=== PATIENT | male | born 1965 | race Native Hawaiian/Other Pacific Islander ===

== ENCOUNTER 2021-11-23 20:27 | Emergency (ER) | payer SELFPAY ==
[2021-11-23 21:10] LABS: BASOPHILS % (AUTO) 0.4 %; EOSINOPHILS % (AUTO) 0.5 %; HCT - HEMATOCRIT 48.5 % (42.0-52.0); HGB - HEMOGLOBIN 16.2 g/dL (14.0-18.0); LYMPHOCYTES % (AUTO) 11.8 %; MEAN CORPUSCULAR HEMOGLOBIN 30.3 pg (27.0-31.0); MEAN CORPUSCULAR HGB CONC 33.4 g/dL (32.0-36.0); MEAN CORPUSCULAR VOLUME 90.8 fL (80.0-94.0); MEAN PLATELET VOLUME 9.5 fL (7.4-11.4); MONOCYTES % (AUTO) 5.9 %; NEUTROPHILS % (AUTO) 80.4 %; PLT - PLATELET COUNT 222 10^3/uL (130-450); RED BLOOD COUNT 5.34 10^6/uL (4.70-6.10); RED CELL DISTRIBUTION WIDTH 12.6 % (12.0-15.0); WHITE BLOOD COUNT 20.2 x10^3/uL (4.8-10.8)
[2021-11-23 21:14] LABS: ABNORMAL LYMPHS % (MANUAL) 0 %
[2021-11-23] MEDS ORDERED: SODIUM CHLORIDE 0.9% 1,000 ML IV STA (21:25)
[2021-11-23 21:29] LABS: ALBUMIN 4.5 g/dL (3.2-5.5); ALBUMIN/GLOBULIN RATIO 1.2 (1.0-2.2); BILIRUBIN,TOTAL 0.4 mg/dL (0.2-1.0); CALCIUM 9.4 mg/dL (8.5-10.3); CREATININE 1.1 mg/dL (0.6-1.2); POTASSIUM 3.2 mmol/L (3.5-5.0); TOTAL PROTEIN 8.2 g/dL (6.7-8.2)
[2021-11-23 21:33] LABS: BILIRUBIN,URINE NEGATIVE (NEGATIVE); GLUCOSE, URINE (UA) NEGATIVE (NEGATIVE); KETONES,URINE (UA) NEGATIVE (NEGATIVE); LEUKOCYTE ESTERASE, URINE NEGATIVE (NEGATIVE); NITRITE,URINE NEGATIVE (NEGATIVE); OCCULT BLOOD,URINE NEGATIVE (NEGATIVE); PROTEIN,URINE TRACE mg/dL (NEGATIVE); UROBILINOGEN,URINE 0.2 (NORMAL) E.U./dL (NORMAL)
[2021-11-23] MEDS ORDERED: VANCOMYCIN INJ 1.75 GM in SODIUM CHLORIDE 0.9% 500 ML IV STA (21:34)
[2021-11-23] MEDS ORDERED: CEFEPIME 2 GM in SODIUM CHLORIDE 0.9% MINIBAG 100 ML IV STA (21:34)
[2021-11-23] MEDS ORDERED: metroNIDAZOLE 500 MG/100 ML 500 MG/100 ML BAG IV STA (21:34)
[2021-11-23 21:38] LABS: CLARITY,URINE CLEAR (CLEAR)
[2021-11-23 21:47] LABS: BAND NEUTROPHILS % (MANUAL) 4 %; DIFFERENTIAL COMMENT MANUAL DIFFERENTIAL; LYMPHOCYTES # (MANUAL) 3.4 10^3/uL (1.5-3.5); LYMPHOCYTES % (MANUAL) 17 %; MONOCYTES # (MANUAL) 0.4 10^3/uL (0.0-1.0); NEUTROPHILS # (MANUAL) 16.4 10^3/uL (1.5-6.6); PLATELET ESTIMATE, MANUAL NORMAL (130-450,000) (NORMAL); PLATELET MORPHOLOGY NORMAL APPEARANCE (NORMAL); RBC MORPHOLOGY (MULTIPLE) NORMAL APPEARANCE (NORMAL); WBC MORPHOLOGY (MULTIPLE) NORMAL APPEARANCE (NORMAL)
[2021-11-23 21:58] LABS: LACTIC ACID, VENOUS 2.8 mmol/L (0.5-2.2)
[2021-11-23] MEDS ORDERED: VANCOMYCIN 1 GM VIAL ONE (22:07)
--- NOTE | 2021-11-23 22:13 | XRAY Report ---
PROCEDURE: Chest 1 View X-Ray INDICATIONS: chest pain TECHNIQUE: One view of the chest was acquired. COMPARISON: None. FINDINGS: Surgical changes and devices: None. Lungs and pleura: No pleural effusions or pneumothorax. Lungs are clear. Mediastinum: Mediastinal contours appear normal. Heart size is at the upper limits of normal. Bones and chest wall: No suspicious bony lesions. Overlying soft tissues appear unremarkable. IMPRESSION: Heart size is at the upper limits of normal, no pneumonia found. No definite acute CHF. Reviewed by: Abdoulaye Marx MD on 11/23/2021 10:11 PM PDT Approved by: Abdoulaye Marx MD on 11/23/2021 10:11 PM PDT Station ID: [id number]
[2021-11-23] MEDS ORDERED: IOVERSOL 320 100 ML VIAL IVP ONE ×2 (22:24→23:26)
--- NOTE | 2021-11-23 22:36 | ED Physician Documentation ---
History of Present Illness - Stated complaint Stated Complaint: DIZZY,VOMIT - Chief complaint Chief Complaint: Abd Pain - History obtained from History obtained from: Patient, Family (tagolic speaking family to help with history) - History of Present Illness Timing: Prior to arrival, Today - Additonal information Additional information: 56-year-old male was reportedly in his usual state of health when he consumed some pork this evening and shortly after he began to develop some nausea and vomiting. He denies any specific pain but he is unable to stand up and walk. He has not had this happen to him previously. He complains of dizziness. He vomited 3 times. He has not had diarrhea. He has not had fever. Review of Systems Constitutional: denies: Fever, Chills Eyes: denies: Decreased vision Ears: denies: Ear pain Nose: denies: Congestion Throat: denies: Sore throat Cardiac: denies: Chest pain / pressure, Palpitations, Pedal edema, Calf pain Respiratory: denies: Dyspnea, Cough, Wheezing GI: reports: Nausea, Vomiting. denies: Abdominal Pain, Constipation, Diarrhea : denies: Dysuria, Frequency Skin: denies: Rash Musculoskeletal: reports: Neck pain. denies: Back pain, Extremity pain Neurologic: reports: Generalized weakness, Altered mental status, Headache. denies: Focal weakness, Numbness, Head injury, LOC PD PAST MEDICAL HISTORY - Present Medications Home Medications: Ambulatory Orders Medication Instructions Recorded Confirmed No Known Home Medications 11/23/21 11/23/21 - Allergies Allergies/Adverse Reactions: Allergies Allergy/AdvReac Type Severity Reaction Status Date / Time No Known Drug Allergies Allergy Verified 11/23/21 20:39 PD ED PE NORMAL - Vitals Vital signs reviewed: Yes (hypertensive marked) - General General: Well developed/nourished, Other (56-year-old male who is withdrawn lays with his eyes closed and responds to his children asking him questions and answers appropriately but does not open his eyes.) - HEENT HEENT: Atraumatic, PERRL, EOMI - Neck Neck: Supple, no meningeal sign, No bony TTP, Other (Able to fully flex and extend the neck.) - Cardiac Cardiac: RRR, No murmur - Respiratory Respiratory: No respiratory distress, Clear bilaterally - Abdomen Abdomen: Normal bowel sounds, Soft, Non tender, Non distended, No organomegaly - Back Back: No CVA TTP, No spinal TTP - Derm Derm: Warm and dry, No rash, Other (Skin appears mottled) - Extremities Extremities: No deformity, No edema - Neuro Neuro: area director 2-12 intact, No motor deficit, No sensory deficit, Normal speech Eye Opening: To Voice Motor: Obeys Commands Verbal: Oriented GCS Score: 14 - Psych Psych: Other (Mood is withdrawn and the affect is flat.) Results - Vitals Vitals: Vital Signs - 24 hr 11/23/21 11/23/21 11/23/21 20:30 20:48 21:06 Temperature 36.2 C L Heart Rate 62 56 L 65 Respiratory 18 16 18 Rate Blood Pressure 222/110 H 198/107 H 209/119 H O2 Saturation 98 100 100 11/23/21 11/23/21 11/23/21 21:41 22:04 22:45 Temperature Heart Rate 60 79 63 Respiratory 18 18 16 Rate Blood Pressure 192/113 H 191/110 H 192/113 H O2 Saturation 100 100 100 11/23/21 11/24/21 11/24/21 23:30 00:00 01:00 Temperature Heart Rate 61 64 66 Respiratory 16 18 20 Rate Blood Pressure 179/114 H 174/121 H 162/134 H O2 Saturation 100 100 100 11/24/21 11/24/21 11/24/21 01:50 01:52 01:58 Temperature Heart Rate 62 61 61 Respiratory 20 20 18 Rate Blood Pressure 172/109 H 166/110 H 174/113 H O2 Saturation 100 100 100 11/24/21 11/24/21 11/24/21 02:03 02:06 02:11 Temperature Heart Rate 61 61 62 Respiratory 18 20 18 Rate Blood Pressure 173/115 H 176/111 H 169/114 H O2 Saturation 100 100 100 11/24/21 11/24/21 11/24/21 02:16 02:25 02:28 Temperature Heart Rate 60 60 63 Respiratory 16 16 18 Rate Blood Pressure 162/111 H 159/111 H 154/114 H O2 Saturation 98 98 98 11/24/21 11/24/21 11/24/21 02:31 02:38 02:43 Temperature Heart Rate 63 64 60 Respiratory 16 19 18 Rate Blood Pressure 159/107 H 161/102 H 155/107 H O2 Saturation 97 99 97 11/24/21 11/24/21 11/24/21 02:56 03:03 03:09 Temperature Heart Rate 72 72 63 Respiratory 19 18 18 Rate Blood Pressure 155/105 H 146/101 H 147/97 H O2 Saturation 99 98 100 11/24/21 11/24/21 03:14 03:32 Temperature Heart Rate 65 62 Respiratory 18 16 Rate Blood Pressure 149/96 H 143/95 H O2 Saturation 100 99 Oxygen O2 Source Room air - Labs Labs: Laboratory Tests 11/23/21 11/23/21 11/23/21 21:00 21:00 21:20 WBC 20.2 H RBC 5.34 Hgb 16.2 Hct 48.5 MCV 90.8 MCH 30.3 MCHC 33.4 RDW 12.6 Plt Count 222 MPV 9.5 Neut # (Auto) Not Reportable Lymph # (Auto) Not Reportable Coke # (Auto) Not Reportable Eos # (Auto) Not Reportable Baso # (Auto) Not Reportable Absolute Nucleated RBC Not Reportable Total Counted 100 Band Neuts % (Manual) 4 Abnorm Lymph % (Manual) 0 Nucleated RBC % Not Reportable Neutrophils # (Manual) 16.4 H Lymphocytes # (Manual) 3.4 Monocytes # (Manual) 0.4 Eosinophils # (Manual) 0.0 Basophils # (Manual) 0.0 Differential Comment MANUAL DIFFERENTIAL WBC Morphology NORMAL APPEARANCE Platelet Estimate NORMAL (130-450,000) Platelet Morphology NORMAL APPEARANCE RBC Morph Micro Appear NORMAL APPEARANCE Sodium 142 Potassium 3.2 L Chloride 103 Carbon Dioxide 26 Anion Gap 13.0 BUN 17 Creatinine 1.1 Estimated GFR (MDRD) 69 L Glucose 149 H Lactic Acid Calcium 9.4 Total Bilirubin 0.4 AST 30 ALT 31 Alkaline Phosphatase 68 Total Protein 8.2 Albumin 4.5 Globulin 3.7 Albumin/Globulin Ratio 1.2 Lipase 28 Urine Color YELLOW Urine Clarity CLEAR Urine pH 6.0 Ur Specific [place] 1.025 Urine Protein TRACE Urine Glucose (UA) NEGATIVE Urine Ketones NEGATIVE Urine Occult Blood NEGATIVE Urine Nitrite NEGATIVE Urine Bilirubin NEGATIVE Urine Urobilinogen 0.2 (NORMAL) Ur Leukocyte Esterase NEGATIVE Ur Microscopic Review NOT INDICATED Urine Culture Comments NOT INDICATED Nasal Adenovirus (PCR) Nasal B. parapertussis DNA (PCR) Nasal Coronavir 229E PCR Nasal Coronavir HKU1 PCR Nasal Coronavir NL63 PCR Nasal Coronavir OC43 PCR Nasal Enterovir/Rhinovir PCR Nasal Influenza B PCR Nasal Influenza A PCR Nasal Parainfluen 1 PCR Nasal Parainfluen 2 PCR Nasal Parainfluen 3 PCR Nasal Parainfluen 4 PCR Nasal RSV (PCR) Nasal B.pertussis DNA PCR Nasal C.pneumoniae (PCR) Dread Human Metapneumo PCR Nasal M.pneumoniae (PCR) Nasal SARS-CoV-2 (PCR) 11/23/21 11/23/21 11/24/21 21:35 21:39 00:50 WBC RBC Hgb Hct MCV MCH MCHC RDW Plt Count MPV Neut # (Auto) Lymph # (Auto) Coke # (Auto) Eos # (Auto) Baso # (Auto) Absolute Nucleated RBC Total Counted Band Neuts % (Manual) Abnorm Lymph % (Manual) Nucleated RBC % Neutrophils # (Manual) Lymphocytes # (Manual) Monocytes # (Manual) Eosinophils # (Manual) Basophils # (Manual) Differential Comment WBC Morphology Platelet Estimate Platelet Morphology RBC Morph Micro Appear Sodium Potassium Chloride Carbon Dioxide Anion Gap BUN Creatinine Estimated GFR (MDRD) Glucose Lactic Acid 2.8 H 3.2 H* Calcium Total Bilirubin AST ALT Alkaline Phosphatase Total Protein Albumin Globulin Albumin/Globulin Ratio Lipase Urine Color Urine Clarity Urine pH Ur Specific [place] Urine Protein Urine Glucose (UA) Urine Ketones Urine Occult Blood Urine Nitrite Urine Bilirubin Urine Urobilinogen Ur Leukocyte Esterase Ur Microscopic Review Urine Culture Comments Nasal Adenovirus (PCR) NOT DETECTED Nasal B. parapertussis DNA (PCR) NOT DETECTED Nasal Coronavir 229E PCR NOT DETECTED Nasal Coronavir HKU1 PCR NOT DETECTED Nasal Coronavir NL63 PCR NOT DETECTED Nasal Coronavir OC43 PCR NOT DETECTED Nasal Enterovir/Rhinovir PCR NOT DETECTED Nasal Influenza B PCR NOT DETECTED Nasal Influenza A PCR NOT DETECTED Nasal Parainfluen 1 PCR NOT DETECTED Nasal Parainfluen 2 PCR NOT DETECTED Nasal Parainfluen 3 PCR NOT DETECTED Nasal Parainfluen 4 PCR NOT DETECTED Nasal RSV (PCR) NOT DETECTED Nasal B.pertussis DNA PCR NOT DETECTED Nasal C.pneumoniae (PCR) NOT DETECTED Dread Human Metapneumo PCR NOT DETECTED Nasal M.pneumoniae (PCR) NOT DETECTED Nasal SARS-CoV-2 (PCR) NOT DETECTED - Rads (name of study) Chest Radiology: Prelim report reviewed (Impression: Heart size is at upper limits of normal, no pneumonia found. No definite acute CHF.), EMP read indepedently, See rad report CT head Radiology: Prelim report reviewed (Impression: Acute left cerebellar hemorrhage, with early mass-effect distorting the fourth ventricle and partially effacing the cerebellar aqueduct. Neurosurgical consultation is anticipated. These findings will be immediately called to the emergency room physician caring for the patient.), EMP read indepedently, See rad report CT ab/pel w Radiology: Prelim report reviewed (Impression: No acute disease, source of current emesis and epigastric pain is not identified. A normal or abnormal appendix could not be located, but there is no secondary CT evidence of acute or chronic appendicitis.), EMP read indepedently, See rad report Procedures - IVC sono (time) 2100 Bedside IVC sono: IVC measures (cm) (1.01), Dehydration (est 1-2 liter deficit) PD MEDICAL DECISION MAKING - ED course Complexity details: reviewed old records, reviewed results, re-evaluated patient, considered differential, d/w patient, d/w family ED course: 56-year-old male presents to the emergency department with an episode of vomiting and abdominal pain after eating pork. On examination the patient appears withdrawn but does appear to answer questions appropriately. He had a hard time getting out of the wheel chair with wobbly legs. This seemed almost dramatic. We found his blood pressure to be extremely elevated and this persisted. My initial concern for this patient was an episode of vomiting and some dehydration and I checked his gallbladder with a bedside ultrasound and found the gallbladder to be nontender tiny stone in it without a thickened wall and this did not seem to be the culprit. We were unable to get abdominal ultrasound today as we have no photo optics technician. The patient was hydrated here in the emergency department and despite this his blood pressure remained elevated and he was eventually administered clonidine. The patient had no complaints of pain but with specific questioning it was clear that he had a headache and neck pain. I did check his neck for nuchal rigidity and he had no evidence of this. We did not initially appreciate a headache and ordered a head CT. The patient did not have adequate control of his blood pressure with the 0.1 of clonidine. We rechecked his lactate and found it to be even more elevated. Giving more concern for sepsis. At this point I consulted the hospitalist who asked for a labetelol drip and a lumbar puncture after head CT. The head CT revealed a bleed in the cerebellum. We called the transfer center at 2am for urgent transfer to neurosurgery. Lumbar puncture is contraindicated secondary to risk of herniation. The labetalol drip was successful in reducing the pressure and we aimed at keeping the diastolic under 110. The neurosurgeon reassured us and recommended more aggressive treatment to maintain a systolic of 140. Departure - Departure Disposition: 02 Transfer Acute Care Hosp Clinical Impression: Hypertensive emergency ICH (intracerebral hemorrhage) Qualifiers: Intracerebral hemorrhage etiology: nontraumatic Cerebral hemorrhage location: cerebellum Laterality: right Qualified Code(s): I61.4 - Nontraumatic intracerebral hemorrhage in cerebellum Discharge Date/Time: 11/24/21 03:38
[2021-11-23 22:43] LABS: B. PARAPERTUSSIS- RESP PCR PAN NOT DETECTED; B. PERTUSSIS- RESP PCR PANEL NOT DETECTED; C. PNEUMONIAE- RESP PCR PANEL NOT DETECTED; CORONAVIRUS 229E-RESP PCR NOT DETECTED; CORONAVIRUS HKU1-RESP PCR NOT DETECTED; CORONAVIRUS NL63-RESP PCR NOT DETECTED; CORONAVIRUS OC43-RESP PCR NOT DETECTED; HUMAN METAPNEUMOVIRUS NOT DETECTED; INFLUENZA A- RESP PCR PANEL NOT DETECTED; INFLUENZA B - RESP PCR PANEL NOT DETECTED; M. PNEUMONIAE- RESP PCR PANEL NOT DETECTED; PARAINFLUENZA VIRUS 1 NOT DETECTED; PARAINFLUENZA VIRUS 2 NOT DETECTED; PARAINFLUENZA VIRUS 3 NOT DETECTED; PARAINFLUENZA VIRUS 4 NOT DETECTED; RHINOVIRUS/ENTEROVIRUS NOT DETECTED; RSV- RESP PCR PANEL NOT DETECTED; SARS-CoV-2 -RESP PCR PANEL NOT DETECTED
[2021-11-23] MEDS ORDERED: cloNIDine 0.1 MG TABLET PO STA (22:45)
--- NOTE | 2021-11-23 23:45 | CT Report ---
PROCEDURE: Abdomen/Pelvis W INDICATIONS: vomitng epigastric pain CONTRAST: IV CONTRAST: Optiray 320 ml: 100 PO CONTRAST: *NO PO CONTRAST TECHNIQUE: After the administration of nonionic contrast, 5 mm thick sections acquired from the diaphragms to th e symphysis. 5 mm thick coronal and sagittal reformats were acquired. For radiation dose reduction, the following was used: automated exposure control, adjustment of mA and/or kV according to patient size. COMPARISON: None. FINDINGS: Image quality: Excellent. ABDOMEN: Lung bases: Lung bases are clear. Heart size is normal. Solid organs: Liver and spleen are normal in size and enhancement. Gallbladder appears normal Bili chantale system is non dilated. Pancreas enhances normally. No adrenal nodules. Kidneys demonstrate nor mal size and enhancement, without hydronephrosis. Peritoneum and bowel: Bowel loops demonstrate normal wall thickness and caliber. No free fluid or a ir. Nodes and vessels: No retroperitoneal or mesenteric adenopathy by size criteria. Aorta and inferior vena cava are normal in size. Miscellaneous: No ventral hernias. PELVIS: Genitourinary: Bladder wall thickness is normal. Miscellaneous: No inguinal hernias or adenopathy. Bones: No suspicious bony lesions. No vertebral body compression fractures. IMPRESSION: No acute disease, source of current emesis and epigastric pain is not identified. A norm al or abnormal appendix could not be located, but there is no secondary CT evidence of acute or chron ic appendicitis. Reviewed by: Abdoulaye Marx MD on 11/23/2021 11:45 PM PDT Approved by: Abdoulaye Marx MD on 11/23/2021 11:45 PM PDT Station ID: [id number]
[2021-11-24 01:11] LABS: LACTIC ACID, VENOUS 3.2 mmol/L (0.5-2.2)
[2021-11-24] MEDS ORDERED: LABETALOL 5 MG/1 ML 20 ML MDV ONE ×2 (01:37→02:56)
[2021-11-24] MEDS: LABETALOL VIAL 200 MG in SODIUM CHLORIDE 0.9% 160 ML IV SCH ×2 (01:45→03:26)
--- NOTE | 2021-11-24 01:53 | CT Report ---
PROCEDURE: HEAD WO INDICATIONS: headache marked htn TECHNIQUE: Noncontrast 4.5 mm thick angled axial sections acquired from the foramen magnum to the vertex. For r adiation dose reduction, the following was used: automated exposure control, adjustment of mA and/or kV according to patient size. COMPARISON: None. FINDINGS: Image quality: Excellent. CSF spaces: Basal cisterns are patent. No extra-axial fluid collections. Ventricles are normal in size and shape. Brain: No midline shift. No intracranial masses but there is acute appearing hemorrhage located wit hin the left cerebellar brain parenchyma measuring up to 2.7 cm in diameter, causing mass effect mild ly compressing the fourth ventricle and distorting the fourth ventricle and cerebral aqueduct in this area.. Dupree-white matter interface is normal. Skull and face: Calvarium and visualized facial bones are intact, without suspicious lesions. Sinuses: Visualized sinuses and mastoids are clear. IMPRESSION: Acute left cerebellar hemorrhage, with early mass effect distorting the fourth ventricle and partially effacing the cerebral aqueduct. Neurosurgical consultation is anticipated. These findi ngs will be immediately called to the emergency room physician caring for the patient. Reviewed by: Abdoulaye Marx MD on 11/24/2021 1:51 AM PDT Approved by: Abdoulaye Marx MD on 11/24/2021 1:51 AM PDT Station ID: [id number]
[2021-11-24 03:33] VITALS: BP 143/95
== END 2021-11-24 03:38 | disposition short-term general hospital (02) ==
LOC: ED 20:27
DX: I61.4 Nontraumatic intracerebral hemorrhage in cerebellum (principal); I16.0 Hypertensive urgency; E86.0 Dehydration; Z20.822 Contact with and (suspected) exposure to COVID-19
CPT/HCPCS: 0202U; 36415; 70450; 71045; 74177; 80053; 81003; 83605; 83690; 85025; 87040; 96365; 96366; 96367; 96368; 99283; 99285; A9270; J3370; Q9967; 81001; 87086